=== PATIENT | male | born 1945 | race Caucasian/White ===

== ENCOUNTER → 2024-01-13 16:19 | Outpatient (REF) | payer MEDICARE, OTHER, SELFPAY | LOC: RAD 16:19 | PROVIDERS: ATTENDING PHYSICIAN Otolaryngology Otolaryngology/Facial Plastic Surgery; FAMILY PHYSICIAN Family Medicine | DX: J32.0 Chronic maxillary sinusitis (principal) | CPT/HCPCS: 70486 ==

== ENCOUNTER 2024-08-27 05:54 | Emergency (ER) | payer MEDICARE, OTHER, SELFPAY ==
[2024-08-27 05:54] VITALS: BMI 23.6
[2024-08-27 05:56] VITALS: BP 173/77
[2024-08-27 06:17] VITALS: BP 177/67
--- NOTE | 2024-08-27 06:40 | ED.GENMED ---
History of Present Illness
<Dex Chester MD, Resident - Last Filed: 08/27/24 10:01>
General
Chief Complaint: Abdominal Pain
Source: patient
Time Seen by Provider: 08/27/24 06:20
Travel History
Have you traveled to any high risk areas for coronavirus over the past 14 days?: No
Have you had any contact with someone who has COVID-19?: No
Do you have any symptoms of coronavirus? Fever > 100 degrees, chills, cough, shortness of breath, sore throat, loss of taste or smell, muscle aches, or headache?: No
History of Present Illness
History of Present Illness:
Marc Hernandez, 79-year-old male, has had abdominal pain, bloating and nausea with 1 episode of vomiting since last night. Symptoms began a few hours after dinner, and the pain improved after he threw up. The vomit mostly contained mucus, which the
patient attributes to his post-nasal drip. The nausea also improved but has persisted. He describes the pain as more of a discomfort now. Also feels relatively constipated; has moved his bowels twice in small amounts since the symptoms began. Denies
noticing blood or mucus in stool. Denies fever, chills, night sweats, fatigue, weakness or chest pain/tightness. Of note, he had re-heated pasta with chicken from earlier this week; shared with his who is asymptomatic.
Past History
<Dex Chester MD, Resident - Last Filed: 08/27/24 10:01>
Past History
ED Past Medical History: Cancer (prostate) and COPD
ED Past Surgical History: Other (proctectomy; sinus surgery * 2; left knee surgery)
Social History
Tobacco: Former smoker
Alcohol: None
Personal:
Living: with family
Review of Systems
<Dex Chester MD, Resident - Last Filed: 08/27/24 10:01>
Review of Systems
All Other Systems: ROS reviewed and negative except as documented in HPI and ROS
Phy Exam
<Dex Chester MD, Resident - Last Filed: 08/27/24 10:01>
General Physical Exam
General Presentation: well appearing and no apparent distress
General Skin: warm and dry
General Habitus: normal
General Mental: alert
General Hydration: appears well hydrated
ENT Exam
ENT Exam: EOMI, pharynx normal, neck supple and normocephalic
Eye Exam
Eye Exam: PERRL, cornea clear and conjunctiva normal
Cardiovascular Exam
Cardiovascular Exam: regular rate/rhythm, no edema, no murmur and normal peripheral pulses
Pulmonary Exam
Pulmonary Exam: lungs clear, no respiratory distress, no rales, no crackles, no rhonchi, no stridor, no wheezing and no cough
Gastrointestinal Exam
Gastrointestinal Exam: normal bowel sounds, soft, no organomegaly, no pulsatile mass, non distended and tender (periumbilical; mildly)
Neurological Exam
Neurological Exam: alert, oriented x3, no motor deficits and speech normal
Musculoskeletal Exam
Musculoskeletal Exam: full ROM and no edema
Skin Exam
Skin Exam: normal color, warm/dry, no rash and no petechia
Psychiatric Exam
Psychiatric Exam: normal mood/affect
Course
<Dex Chester MD, Resident - Last Filed: 08/27/24 10:01>
Orders/Labs/Results
Orders:
Orders
08/27/24 06:39
Ondansetron Injectable [Zofran] 4 mg IV NOW STA
08/27/24 06:41
Complete Blood Count/With Diff Urgent
Comprehensive Metabolic Panel Urgent
Lipase Urgent
08/27/24 06:42
Acetaminophen [Tylenol] 650 mg PO NOW STA
08/27/24 08:32
Urinalysis Reflex To Culture Urgent
Date Specimen was Collected: 08/27/24
Time Specimen was Collected: 08:30
Urine Microscopic Reflex Cult Urgent
Abnormal Lab Results
08/27/24 08/27/24
06:41 08:32
Absolute Lymphs (auto) 0.9 L 10^3/uL
(1.2-3.4)
Neutrophils % 79.5 H %
(42.2-75.2)
Lymphocytes % 11.7 L %
(20.5-51.1)
BUN 21 H mg/dl
(9-20)
Glucose 127 H mg/dl
(70-99)
Total Protein 8.6 H g/dl
(6.3-8.2)
Albumin 5.1 H g/dl
(3.5-5.0)
Ur Occult Blood Reflex 1+ A
(Negative)
Leukocyte Esterase Rfl Trace A
(Negative)
Urine RBC 3-6 A /HPF
(0-2)
Urine Bacteria (Reflex) Few A
(Negative)
Urine Albumin (Reflex) 1+ A
(Neg - Trace)
08/27/24 06:41
08/27/24 06:41
Vital Signs
Initial and Last Documented VS:
Initial Vital Signs
Temp Pulse Resp BP Pulse Ox
98 F 78 18 173/77 99
08/27/24 05:56 08/27/24 05:56 08/27/24 05:56 08/27/24 05:56 08/27/24 05:56
Last Documented Vital Signs
Temp Pulse Resp BP Pulse Ox
98 F 78 18 165/74 98
08/27/24 05:56 08/27/24 05:56 08/27/24 05:56 08/27/24 10:00 08/27/24 10:30
<Aquiles Smith DO - Last Filed: 08/27/24 13:12>
Orders/Labs/Results
Orders:
Orders
08/27/24 06:39
Ondansetron Injectable [Zofran] 4 mg IV NOW STA
08/27/24 06:41
Complete Blood Count/With Diff Urgent
Comprehensive Metabolic Panel Urgent
Lipase Urgent
08/27/24 06:42
Acetaminophen [Tylenol] 650 mg PO NOW STA
08/27/24 08:32
Urinalysis Reflex To Culture Urgent
Date Specimen was Collected: 08/27/24
Time Specimen was Collected: 08:30
Urine Microscopic Reflex Cult Urgent
Abnormal Lab Results
08/27/24 08/27/24
06:41 08:32
Absolute Lymphs (auto) 0.9 L 10^3/uL
(1.2-3.4)
Neutrophils % 79.5 H %
(42.2-75.2)
Lymphocytes % 11.7 L %
(20.5-51.1)
BUN 21 H mg/dl
(9-20)
Glucose 127 H mg/dl
(70-99)
Total Protein 8.6 H g/dl
(6.3-8.2)
Albumin 5.1 H g/dl
(3.5-5.0)
Ur Occult Blood Reflex 1+ A
(Negative)
Leukocyte Esterase Rfl Trace A
(Negative)
Urine RBC 3-6 A /HPF
(0-2)
Urine Bacteria (Reflex) Few A
(Negative)
Urine Albumin (Reflex) 1+ A
(Neg - Trace)
08/27/24 06:41
08/27/24 06:41
Vital Signs
Initial and Last Documented VS:
Initial Vital Signs
Temp Pulse Resp BP Pulse Ox
98 F 78 18 173/77 99
08/27/24 05:56 08/27/24 05:56 08/27/24 05:56 08/27/24 05:56 08/27/24 05:56
Last Documented Vital Signs
Temp Pulse Resp BP Pulse Ox
98 F 78 18 165/74 98
08/27/24 05:56 08/27/24 05:56 08/27/24 05:56 08/27/24 10:00 08/27/24 10:30
<Dex Chester MD, Resident - Last Filed: 08/27/24 10:01>
MDM/Problems Addressed
Differential Diagnosis Includes:
viral gastroenteritis; food poisoning; constipation
MDM/Problems Addressed:
Patient is stable, and has not been nauseous. Abdominal discomfort is a little better but exam is unremarkable and non-tender now. Able to tolerate oral intake without nausea or difficulty. Vitals and lab work within normal limits. Okay to discharge
home with nausea medications. Discussed with the patient and recommended following up with primary.
<Dex Chester MD, Resident - Last Filed: 08/27/24 10:01>
*Critical Care Note
Total Time (30-74mins, 75-104mins- exclusive of procedures): Not Applicable
ED Attending Note
<Dex Chester MD, Resident - Last Filed: 08/27/24 10:01>
-
Portions of this chart may have been created with voice recognition software.� Occasional wrong word or��sound alike� substitutions may have occurred due to the inherent limitations of voice recognition software.
<Aquiles Smith, - Last Filed: 08/27/24 13:12>
ED Attending Note
Patient seen and examined by attending physician: Yes
I performed the substantive portion of visit, reviewed & personally made and approve the management plan that is documented in note by myself or JONA.: Yes
ED Attending Note:
I agree with Dr. Thurman's note
Patient presents with nausea, some vague lower abdominal discomfort. Symptoms have improved significantly after vomiting prior to the emergency room visit. No diarrhea or constipation.
General: Awake, Alert, Oriented X3. No acute distress.
Vitals: unremarkable
Head: Atraumatic
Eyes: Pupils equal, EOMI
Neck: Trachea midline
Lungs: Clear and equal b/l
Heart: Regular rate, no murmurs
Abd: Soft, Nontender, No pulsatile mass
Neuro: Nonfocal
Skin: Warm, dry, no rash
Extremities: pulses equal b/l, no edema
Patient feels better after Zofran here. His abdominal exam is benign. Labs are unremarkable. No sign of urinary tract infection. Patient stable for discharge home and outpatient follow-up
Discharge Plan
Departure
Patient Disposition: Home (Routine Discharge)
Date of Disposition: 08/27/24
Time of Disposition: 09:55
Patient with high blood pressure during this ER visit?: Yes
Condition: Good
Discharge Problem:
Viral gastroenteritis
Instructions: Edmonson Diet, Abdominal Pain
Prescriptions:
New
ondansetron HCl 4 mg tablet
4 mg PO Q8H PRN (Reason: nausea and vomiting) Qty: 14 0RF
No Action
simvastatin 10 MG tablet
10 mg PO DAILY
aspirin 81 MG tablet,delayed release (DR/EC)
81 mg PO DAILY
mometasone [Nasonex] 17 GM spray,non-aerosol
1 spray intranasal .NOSTRIL
montelukast 10 MG tablet
10 mg PO QPM
mometasone [Asmanex Twisthaler] 220 MCG aerosol powdr breath activated
220 mcg IH DAILY
omeprazole 40 MG capsule,delayed release(DR/EC)
40 mg PO PRN PRN (Reason: prn)
sildenafil [Viagra] 25 MG tablet
50 mg PO PRN PRN (Reason: prn)
Referrals:
Ad Dorman MD [Family Provider] -
Activity Restrictions/Additional Instructions:
Rest and maintain adequate hydration. Follow-up with your primary. Please return to the emergency for worsening symptoms, fever, fatigue or weakness.
Interventions
Interventions:
*Risk Screen - Suicide Last Done: 08/27/24 05:59
*General Assessment Last Done: 08/27/24 05:59
*Neglect/Abuse Screening Last Done: 08/27/24 06:33
ED- Fall Risk Assessment Last Done: 08/27/24 10:45
*ED COVID-19 Vaccine History Last Done: 08/27/24 05:59
*Nursing Disposition Last Done: 08/27/24 10:45
JW-Ykdvej-Dzinoyvegq Assessment Last Done: 08/27/24 06:32
Discharge Date and Time
Discharge Date/Time: 08/27/24 10:45
Print Language: PALAUAN
[2024-08-27] MEDS: TYLENOL 650 MG PO (06:46)
[2024-08-27] MEDS: ZOFRAN 4 MG IV (06:46)
[2024-08-27 06:49] LABS: % Basophils 0.4 % (0-2); % Eosinophils 1.6 % (0-6); % Immature Granulocytes 0.5 % (0-0.5); % Lymphocytes 11.7 % (20.5-51.1); % Monocytes 6.3 % (1.7-9.3); % Neutrophils 79.5 % (42.2-75.2); Absolute Eosinophils 0.1 10^3/uL (0-0.7); Absolute Lymphocytes 0.9 10^3/uL (1.2-3.4); Absolute Monocytes 0.5 10^3/uL (0.1-0.6); Absolute Neutrophils 5.8 10^3/uL (1.4-6.5); Hematocrit 44.9 % (39.0-52.0); Hemoglobin 15.1 g/dL (13.0-18.0); Mean Corp Hgb Conc. 33.6 g/dL (33.0-37.0); Mean Corpuscular Hgb 28.5 pg (27.0-31.0); Mean Corpuscular Volume 84.9 fL (80.0-94.0); Mean Platelet Volume 9.9 fL (7.4-10.4); Nucleated Red Blood Cells % 0 % (-); Platelet Count 211 10^3/uL (130-400); Red Blood Cell Count 5.29 10^6/uL (4.70-6.10); Red Cell Dist. Width 13.2 % (11.5-14.5); White Blood Cell Count 7.3 10^3/uL (4.8-10.8)
[2024-08-27 07:00] VITALS: BP 150/68
[2024-08-27 07:01] LABS: ALT (SGPT) 36 U/L (0-50); AST (SGOT) 41 U/L (17-59); Albumin 5.1 g/dl (3.5-5.0); Alkaline Phosphatase 106 U/L (38-126); Blood Urea Nitrogen 21 mg/dl (9-20); Carbon Dioxide 27 mmol/L (22-30); Chloride 100 mmol/L (98-107); Estimated Creatinine Clearance 55 ml/min; Glucose 127 mg/dl (70-99); Lipase 59 U/L (23-300); Potassium 4.1 mmol/L (3.5-5.1); Sodium 142 mmol/L (135-145); Total Bilirubin 0.6 mg/dl (0.2-1.3); Total Protein 8.6 g/dl (6.3-8.2); eGFR > 60.00
[2024-08-27 08:31] VITALS: BP 114/92
[2024-08-27 08:42] LABS: Urine Albumin 1+ (Neg - Trace); Urine Bilirubin Negative (Negative); Urine Character Clear (Clear); Urine Color Yellow; Urine Glucose Negative (Negative); Urine Ketone Negative (Negative); Urine Leukocyte Trace (Negative); Urine Nitrite Negative (Negative); Urine Occult Blood 1+ (Negative); Urine Urobilinogen Negative (Neg - 1+)
[2024-08-27 09:00] VITALS: BP 140/67
[2024-08-27 09:10] LABS: Urine Mucus Many
[2024-08-27 09:14] LABS: Urine Amorphous Seen; Urine Bacteria Few (Negative); Urine White Cell 0-2 /HPF (0-5)
[2024-08-27 10:00] VITALS: BP 165/74
== END 2024-08-27 10:45 | disposition home or self-care (01) ==
LOC: EMR 05:54
PROVIDERS: Student in an Organized Health Care Education/Training Program; EMERGENCY PHYSICIAN Emergency Medicine; FAMILY PHYSICIAN Family Medicine
DX: A08.4 Viral intestinal infection, unspecified (principal); R10.9 Unspecified abdominal pain; R14.0 Abdominal distension (gaseous); J44.9 Chronic obstructive pulmonary disease, unspecified; Z87.891 Personal history of nicotine dependence
CPT/HCPCS: 99283; 96374; 80053; 81003; 81015; 83690; 85025

== ENCOUNTER → 2025-05-03 10:56 | Outpatient (REF) | payer MEDICARE, OTHER, SELFPAY | LOC: RCS 10:56 | PROVIDERS: ATTENDING PHYSICIAN Internal Medicine Cardiovascular Disease; FAMILY PHYSICIAN Family Medicine | DX: I35.0 Nonrheumatic aortic (valve) stenosis (principal) | CPT/HCPCS: 93306 ==

== ENCOUNTER 2025-10-11 14:34 | Inpatient (IN) | payer MEDICARE, OTHER, SELFPAY ==
[2025-10-11] VITALS (9 sets, daily range): BP systolic 124–171; BP diastolic 61–80; BMI 24.3; BMI 24.5
--- NOTE | 2025-10-11 09:44 | ED.GENMED ---
History of Present Illness
<Penny Roberts DOT COMPLIANCE MANAGER - Last Filed: 10/12/25 08:33>
General
Chief Complaint: Abdominal Pain
Source: patient
Exam Limitations: none
Time Seen by Provider: 10/11/25 09:43
Nursing documentation reviewed up to this point in time: agreed with
History of Present Illness
History of Present Illness:
80-year-old male with history of COPD, HLD, prostate cancer with prostatectomy 2008, presents from home stating he's had abdominal cramping and vomiting, beginning yesterday. Described as crampy abdominal discomfort and had two to three formed bowel
movements, feeling somewhat improved afterward. The patient reported increased belching as the day progressed and while walking the dog a while later, he 'vomited out of nowhere, a small amount. Throughout the night, he experienced significant
abdominal pain, rating it 8 out of 10 on a severity scale. Upon waking at 8 AM today, the patient vomited a large volume of undigested food from last nights dinner and felt somewhat better and not as bloated. Currently, the pain is rated as 2/10
from 8/10 earlier. The patient reports persistent nausea but no fever, chills, diarrhea, or difficulty urinating.
Has been having intermittent stomach issues, PCP aware, and reports a normal abdominal US at [facility] about 2 months ago.
Past History
<Penny Roberts, DOT COMPLIANCE MANAGER - Last Filed: 10/12/25 08:33>
Past History
ED Past Medical History: Cancer (prostate) and COPD
ED Past Surgical History: Other (proctectomy; sinus surgery * 2; left knee surgery)
Social History
Tobacco: Former smoker
Alcohol: None
Personal:
Living: with family
Employment: Retired
Review of Systems
<Penny Roberts, DOT COMPLIANCE MANAGER - Last Filed: 10/12/25 08:33>
Review of Systems
Allergies reviewed?: Yes
All Other Systems: ROS reviewed and negative except as documented in HPI and ROS
Constitutional: Denies fever or chills
Respiratory: Denies trouble breathing
Cardiac: Denies chest pain
ABD/GI: Reports abdominal pain, nausea and vomiting; Denies diarrhea, constipated, bloody stools, black stools or anorexia
: Denies dysuria or difficulty voiding
Musculoskeletal: Reports no symptoms
Skin: Reports no symptoms
Neurological: Reports no symptoms
Phy Exam
<Penny Roberts, DOT COMPLIANCE MANAGER - Last Filed: 10/12/25 08:33>
Physical Exam
Physical Exam:
GENERAL: No acute distress. A&Ox3.
CONSTITUTIONAL: Afebrile.
EYES: clear, conjunctivae normal
ENMT: dry mucus membranes, Pharynx nl
RESPIRATORY: Regular respirations, nonlabored, lungs clear.
CARDIOVASCULAR: Regular rate and rhythm, no murmurs, no rubs.
GI: Soft, mildly distended, hypoactive BS
MUSCULOSKELETAL: Moves with ease. Well perfused. No edema
SKIN: Warm, dry, pink
PSYCH: Normal mood and affect. Well kept, interactive and appropriate
NEUROLOGIC: Awake, alert and oriented. No focal neurological deficits
Course
<Penny Roberts, DOT COMPLIANCE MANAGER - Last Filed: 10/12/25 08:33>
Orders/Labs/Results
Orders:
Orders
10/11/25 Breakfast
NPO
Allow oral meds: No
Allow clear liquids: No
10/11/25 09:56
Iohexol [Omnipaque] See Protocol PO NOW STA
10/11/25 10:00
CT Abd/pel W Iv And Oral Contr Urgent
Comment:
Reason For Exam: general abd pain, bloating
10/11/25 10:02
0.9% Sodium Chloride 1000 ml [Nss] 1,000 ml IV BOLUS
Ondansetron Injectable [Zofran] 4 mg IV NOW STA
10/11/25 10:03
Complete Blood Count/With Diff Urgent
Comprehensive Metabolic Panel Urgent
Lipase Urgent
10/11/25 13:40
NG Tube [GI tube insertion- Treatment] ONCE
10/11/25 14:05
Admit/Transfer Patient As Directed
Co-Sign Provider:
Level of Care: Inpatient admission
Assign to:: Medical/Surgical
Physician / Group: chuck
Diagnosis: SBO
Reason for Hospitalization: SBO
Expected length of stay greater than two midnights?: Yes
ELOS- Estimated Length of Stay in days: 3
I certify the patient meets the requirements for IP care: Yes
PRN Pain Medication Management As Directed
May give lesser potent ordered pain med per pt: Yes
preference::
Protocol:: Medication orders for pain may be administered in a
manner that supports deferring to patient preference
when the pt is:
- Requesting an ordered lesser potent pain medication.
Least to most potent pain medications are defined
as: acetaminophen < NSAID < tramadol < opioids
(morphine, oxycodone, hydromorphone).
- Requesting a lesser dose of the same medication IF
ORDERED.
- Requesting a less intrusive route of administration
if both routes are prescribed by the provider (PO <
IV).
10/11/25 14:06
Code Status As Directed
Resuscitation Status: Full Code
10/11/25 14:08
EKG [Electrocardiogram (*1)] Stat
Reason for Study: QTc Monitoring
10/11/25 17:07
Ondansetron Injectable [Zofran] 4 mg IV Q6HPRN PRN
10/11/25 17:07
SURGICAL CONSULT Routine
Consulting Provider: Po Stevens
Was physician already notified: Yes
Activity As Directed
Activity Level: As Tolerated
NG Tube [Gastrointestinal Tubes] As Directed
To suction?: Yes
Type of suction: Low intermittent
Irrigate tube?: Yes
Irrigant: Normal Saline - 0.9% NaCl
Frequency: Q4H
Amount in mls: 30
Irrigation Directions: Irrigate Q4H and PRN
Vital Signs As Directed
Frequency: Per unit guidelines
DX Deep Vein Thrombosis Video Routine
10/11/25 18:00
Enoxaparin Sodium [Lovenox] 40 mg SC QPM
10/12/25 05:36
Basic Metabolic Panel IN AM
Complete Blood Count/No Diff IN AM
10/13/25 06:00
Basic Metabolic Panel IN AM
10/14/25 06:00
Basic Metabolic Panel IN AM
Abnormal Lab Results
10/11/25
10:03
Absolute Neuts (auto) 7.1 H 10^3/uL
(1.4-6.5)
Absolute Lymphs (auto) 0.6 L 10^3/uL
(1.2-3.4)
Neutrophils % 85.3 H %
(42.2-75.2)
Lymphocytes % 7.7 L %
(20.5-51.1)
Glucose 128 H mg/dl
(70-99)
10/11/25 10:03
10/11/25 10:03
Vital Signs
Initial and Last Documented VS:
Initial Vital Signs
Temp Pulse Resp BP Pulse Ox
98.6 F 82 18 146/69 98
10/11/25 09:39 10/11/25 09:39 10/11/25 09:39 10/11/25 09:39 10/11/25 09:39
Last Documented Vital Signs
Temp Pulse Resp BP Pulse Ox
97.9 F 67 16 137/59 96
10/12/25 08:01 10/12/25 08:01 10/12/25 08:01 10/12/25 08:01 10/12/25 08:01
<Tressa Hinojosa DO - Last Filed: 10/11/25 16:22>
Orders/Labs/Results
Orders:
Orders
10/11/25 Breakfast
NPO
Allow oral meds: No
Allow clear liquids: No
10/11/25 09:56
Iohexol [Omnipaque] See Protocol PO NOW STA
10/11/25 10:00
CT Abd/pel W Iv And Oral Contr Urgent
Comment:
Reason For Exam: general abd pain, bloating
10/11/25 10:02
0.9% Sodium Chloride 1000 ml [Nss] 1,000 ml IV BOLUS
Ondansetron Injectable [Zofran] 4 mg IV NOW STA
10/11/25 10:03
Complete Blood Count/With Diff Urgent
Comprehensive Metabolic Panel Urgent
Lipase Urgent
10/11/25 13:40
NG Tube [GI tube insertion- Treatment] ONCE
10/11/25 14:05
Admit/Transfer Patient As Directed
Co-Sign Provider:
Level of Care: Inpatient admission
Assign to:: Medical/Surgical
Physician / Group: chuck
Diagnosis: SBO
Reason for Hospitalization: SBO
Expected length of stay greater than two midnights?: Yes
ELOS- Estimated Length of Stay in days: 3
I certify the patient meets the requirements for IP care: Yes
PRN Pain Medication Management As Directed
May give lesser potent ordered pain med per pt: Yes
preference::
Protocol:: Medication orders for pain may be administered in a
manner that supports deferring to patient preference
when the pt is:
- Requesting an ordered lesser potent pain medication.
Least to most potent pain medications are defined
as: acetaminophen < NSAID < tramadol < opioids
(morphine, oxycodone, hydromorphone).
- Requesting a lesser dose of the same medication IF
ORDERED.
- Requesting a less intrusive route of administration
if both routes are prescribed by the provider (PO <
IV).
10/11/25 14:06
Code Status As Directed
Resuscitation Status: Full Code
10/11/25 14:08
EKG [Electrocardiogram (*1)] Stat
Reason for Study: QTc Monitoring
10/11/25 17:07
Ondansetron Injectable [Zofran] 4 mg IV Q6HPRN PRN
10/11/25 17:07
SURGICAL CONSULT Routine
Consulting Provider: Po Stevens
Was physician already notified: Yes
Activity As Directed
Activity Level: As Tolerated
NG Tube [Gastrointestinal Tubes] As Directed
To suction?: Yes
Type of suction: Low intermittent
Irrigate tube?: Yes
Irrigant: Normal Saline - 0.9% NaCl
Frequency: Q4H
Amount in mls: 30
Irrigation Directions: Irrigate Q4H and PRN
Vital Signs As Directed
Frequency: Per unit guidelines
DX Deep Vein Thrombosis Video Routine
10/11/25 18:00
Enoxaparin Sodium [Lovenox] 40 mg SC QPM
10/12/25 05:36
Basic Metabolic Panel IN AM
Complete Blood Count/No Diff IN AM
10/13/25 06:00
Basic Metabolic Panel IN AM
10/14/25 06:00
Basic Metabolic Panel IN AM
Abnormal Lab Results
10/11/25
10:03
Absolute Neuts (auto) 7.1 H 10^3/uL
(1.4-6.5)
Absolute Lymphs (auto) 0.6 L 10^3/uL
(1.2-3.4)
Neutrophils % 85.3 H %
(42.2-75.2)
Lymphocytes % 7.7 L %
(20.5-51.1)
Glucose 128 H mg/dl
(70-99)
10/11/25 10:03
10/11/25 10:03
Vital Signs
Initial and Last Documented VS:
Initial Vital Signs
Temp Pulse Resp BP Pulse Ox
98.6 F 82 18 146/69 98
10/11/25 09:39 10/11/25 09:39 10/11/25 09:39 10/11/25 09:39 10/11/25 09:39
Last Documented Vital Signs
Temp Pulse Resp BP Pulse Ox
97.9 F 67 16 137/59 96
10/12/25 08:01 10/12/25 08:01 10/12/25 08:01 10/12/25 08:01 10/12/25 08:01
<Penny Roberts, DOT COMPLIANCE MANAGER - Last Filed: 10/12/25 08:33>
MDM/Problems Addressed
MDM/Problems Addressed:
80-year-old male with history of COPD, HLD, prostate cancer with prostatectomy 2008, presents from home stating he's had abdominal cramping and vomiting, beginning yesterday. Described as crampy abdominal discomfort and had two to three formed bowel
movements, feeling somewhat improved afterward. The patient reported increased belching as the day progressed and while walking the dog a while later, he 'vomited out of nowhere, a small amount. Throughout the night, he experienced significant
abdominal pain, rating it 8 out of 10 on a severity scale. Upon waking at 8 AM today, the patient vomited a large volume of undigested food from last nights dinner and felt somewhat better and not as bloated. Currently, the pain is rated as 2/10
from 8/10 earlier. The patient reports persistent nausea but no fever, chills, diarrhea, or difficulty urinating.
Has been having intermittent stomach issues, PCP aware, and reports a normal abdominal US at [facility] about 2 months ago.
10:45 AM:
CBC normal
CMP normal
lipase normal
1:30 PM:
CAT scan abdomen pelvis p.o. and IV contrast with read: IMPRESSION:
1. Small bowel obstruction with transition point in the right lower quadrant as above. Just proximal to the transition, there is fat attenuation within the small bowel lumen which is probably related to ingested material rather than mass as above.
Associated small volume of free fluid within the pelvis, no abscess formation or pneumoperitoneum.
2. Hepatomegaly and hepatic fatty infiltration.
Hospitalist and Gen Surgery Dr. Stevens notified of admisison.
NG tube ordered
Pt remains stable.
<Penny Roberts, DOT COMPLIANCE MANAGER - Last Filed: 10/12/25 08:33>
*Pulse Oximetry
SaO2: 98
Oxygen Mode of Delivery: Room air
Patient hypoxic: no
*Critical Care Note
Total Time (30-74mins, 75-104mins- exclusive of procedures): Not Applicable
ED Attending Note
<Penny Roberts, DOT COMPLIANCE MANAGER - Last Filed: 10/12/25 08:33>
-
Portions of this chart may have been created with voice recognition software.� Occasional wrong word or��sound alike� substitutions may have occurred due to the inherent limitations of voice recognition software.
<Tressa Hinojosa DO - Last Filed: 10/11/25 16:22>
ED Attending Note
Patient seen and examined by attending physician: Yes
I performed the substantive portion of visit, reviewed & personally made and approve the management plan that is documented in note by myself or JONA.: Yes
I performed a history and physical exam of patient and discussed management with resident, I reviewed resident's note and agree with documented findings and plan of care.: Yes
ED Attending Note:
. 80-year-old male presents to the ER for evaluation of abdominal discomfort, nausea and vomiting. He denies any prior history of similar pains. Vital signs reviewed, patient is awake, alert, appears in no acute distress, mucous membranes tacky,
NG tube present in nostril draining coffee-ground appearing material, abdomen is soft with mild distention, GCS is 15. I discussed with patient need for admission given presence of bowel obstruction. He agrees with plan at current. Nurse
practitioner was able to speak with hospitalist team and surgery team who accept patient for admission
Discharge Plan
Departure
Patient Disposition: Admit
Date of Disposition: 10/11/25
Time of Disposition: 13:42
Admit to: Med/Surg
Presentation/result/management discussed w/ accepting MD/DO: Hospitalist
Condition: Fair
Discharge Problem:
SBO (small bowel obstruction)
Interventions
Interventions:
*Risk Screen - Suicide Last Done: 10/11/25 09:39
*Neglect/Abuse Screening Last Done: 10/11/25 09:39
*ED COVID-19 Vaccine History Last Done: 10/11/25 09:39
*ED Influenza Vaccine History Last Done: 10/11/25 09:39
[facility] Fall Risk Assessment Tool Last Done: 10/11/25 09:37
*Nursing Disposition Last Done: 10/11/25 16:45
RT-Pcbpjk-Ihesohqdzl Assessment Last Done: 10/11/25 09:51
Discharge Date and Time
Discharge Date/Time: 10/11/25 16:46
[2025-10-11] MEDS: OMNIPAQUE 50 ML PO (10:08)
[2025-10-11] MEDS: ZOFRAN 4 MG IV (10:08)
[2025-10-11] MEDS: NSS 1000 IV (10:10)
[2025-10-11 10:22] LABS: Hematocrit 45.6 % (39.0-52.0); Hemoglobin 15.2 g/dL (13.0-18.0); Mean Corp Hgb Conc. 33.3 g/dL (33.0-37.0); Mean Corpuscular Volume 88.7 fL (80.0-94.0); Nucleated Red Blood Cells % 0 % (-); Platelet Count 218 10^3/uL (130-400); Red Cell Dist. Width 13.2 % (11.5-14.5)
[2025-10-11 10:33] LABS: ALT (SGPT) 25 U/L (0-50); AST (SGOT) 27 U/L (17-59); Albumin 4.7 g/dl (3.5-5.0); Alkaline Phosphatase 107 U/L (38-126); Blood Urea Nitrogen 16 mg/dl (9-20); Calcium 9.5 mg/dl (8.4-10.2); Carbon Dioxide 25 mmol/L (22-30); Chloride 103 mmol/L (98-107); Estimated Creatinine Clearance 64 ml/min; Glucose 128 mg/dl (70-99); Lipase 97 U/L (23-300); Potassium 4.4 mmol/L (3.5-5.1); Sodium 137 mmol/L (135-145); Total Protein 8.0 g/dl (6.3-8.2); eGFR > 60.00
--- NOTE | 2025-10-11 13:48 | HPS.HSE ---
Addendum entered and electronically signed by Lee Ann Garza MD 10/11/25 15:48:
This is an addendum to H&P written by Janett Tejeda on 10/11/2025. �Patient seen and examined independently with SCREW CUTTER.
80-year-old male past medical history of asthma, hypercholesteremia, prostate cancer status post prostatectomy 2008, COPD, presenting with ongoing abdominal cramping/bloating. �Had outpatient ultrasound unremarkable 2 months ago. �Yesterday
abdominal distention and pain, dry heaving, 4 large bowel movements. �Large vomiting this morning.
Vital signs unremarkable.
Labs unremarkable.
CT abdomen pelvis shows small bowel obstruction with transition point in the right lower quadrant.
Patient with acute small bowel obstruction. �N.p.o., IV fluids, Zofran, NG tube placed, general surgery consulted.
Original Note:
Family Physician
-
Family Physician: Ad Dorman
Chief Complaint
-
abdominal pain and distention.
History of Present Illness
80-year-old male with history of COPD, HLD, prostate cancer with prostatectomy 2008, presents from home stating he's had abdominal cramping and vomiting, beginning yesterday. patient stated abdominal bloating, cramping for a while. he obtained US of
abdomen with no acute finding. yesterday patient started having abdominal distention, pain. he was having dry heaving and vomited large volume of undigested food today morning. yesterday, he moved large regular bowel movement 3-4 times. denied
dysuria or hematuria. denied fever, chills, DELA CRUZ, dizzy or syncope. denied chest pain, sob.
CT with large SBO. admitting for further management.
Medical History
Past Medical History
Past Medical History: Reports Other
Additional Past Medical History:
Asthma, hypercholesterolemia, Raynaud's disease
Past Surgical History: Reports Other
Additional Past Surgical History:
Prostatectomy, sinus surgery
Social History
Tobacco: Non-smoker
Alcohol: Occasional
Drug: None
Living: With Family
Family History
Family History: Not pertinent
Allergies / Home Medications
Allergies reflects when Allergies were last updated in [facility].
Home Medications with original date entered in [facility]
Allergy/Medication List:
Allergies
Allergy/AdvReac Type Severity Reaction Status Date / Time
latex Allergy Unknown Verified 10/11/25 09:38
dust Allergy Unknown Uncoded 10/11/25 09:38
pollen Allergy Unknown Uncoded 10/11/25 09:38
Home Medications
aspirin 81 mg tablet,delayed release 81 mg PO DAILY 04/29/16
mometasone 220 mcg/actuation(120 doses)breath activated powder inhaler (Asmanex Twisthaler) 220 mcg IH DAILY 04/29/16
mometasone 50 mcg/actuation nasal spray (Nasonex) 1 spray intranasal .NOSTRIL 04/29/16
montelukast 10 mg tablet 10 mg PO QPM 04/29/16
simvastatin 10 mg tablet 10 mg PO DAILY 04/29/16
omeprazole 40 mg capsule,delayed release 40 mg PO PRN PRN prn 04/30/19
sildenafil 25 mg tablet (Viagra) 50 mg PO PRN PRN prn 04/30/19
ondansetron HCl 4 mg tablet 4 mg PO Q8H PRN nausea and vomiting #14 tabs 08/27/24
Review of Systems
-
Abdomen/GI: Reports No Symptoms, Abdominal Pain, Nausea and Vomiting
Physical Exam
Vital Signs
Vital Signs
Temp Pulse Resp BP Pulse Ox
98.2 F 75 25 171/80 99
10/11/25 12:00 10/11/25 13:00 10/11/25 13:00 10/11/25 13:00 10/11/25 13:00
Physical Exam
General: Well Developed, Well Nourished and No Apparent Distress
HEENT: NormoCephalic, Moist mucous membranes and Atraumatic
Respiratory: Clear
Cardiac: S1/S2 and Regular Rhythm; No Murmur or Rub
GI: Soft, Non Tender, Non Distended, Normal Bowel Sounds and Distended; No Organomegaly
Rectal: Deferred by Provider
Musculoskeletal: No Clubbing, No Cyanosis and No Edema
Skin: No Rash
Neuro: AO x 3 and Nonfocal/grossly intact
Psych: Calm
Laboratory Results
-
10/11/25 10:03
10/11/25 10:03
Laboratory Results
Total Bilirubin 0.6 mg/dl (0.2-1.3) 10/11/25 10:03
AST 27 U/L (17-59) 10/11/25 10:03
ALT 25 U/L (0-50) 10/11/25 10:03
Alkaline Phosphatase 107 U/L (38-126) 10/11/25 10:03
Lipase 97 U/L (23-300) 10/11/25 10:03
Data Reviewed
-
CT Scan: Report Reviewed by me
Lab Data: Labs Reviewed by me
Impression/Plan
-
# Small bowel obstruction
- NG tube
- Keep patient n.p.o.
-Zofran prn for n/v
- Surgery consult
- CT abdomen pelvis with impression Small bowel obstruction with transition point in the right lower quadrant as above. Just proximal to the transition, there is fat attenuation within the small bowel lumen which is probably related to ingested
material rather than mass as above. Associated small volume of free fluid within the pelvis, no abscess formation or pneumoperitoneum.
2. Hepatomegaly and hepatic fatty infiltration.
#hxt of asthma
-not in acute exacerbation
-hold med
#HLD
-hold statin
#DVT prophylaxis
-Lovenox
#CODE status
-full code
--- NOTE | 2025-10-11 14:05 | CON.GS ---
Addendum entered and electronically signed by Po Stevens MD 10/11/25 21:14:
Patient seen and examined.
Patient is a 80 yo M with a PMH of asthma, psoriasis, HLD, and prostate cancer s/p robotic prostatectomy 2004 at [facility] who presents with 24 hours of abdominal pain, nausea, and vomiting. Abdominal cramping and pain has been intermittent over the
past 8-10 months; occurring on a weekly basis with spontaneous resolution over the course of hours. No prior hospital admissions. Symptoms usually occur with having a BM and are improved with Gas-X. No use of laxatives or chronic bowel meds.
Current episode began yesterday morning an progressed throughout the day with worsening crampy pain and distension. Associated nausea and vomiting. No clear dietary indiscretion or large volume of fiber, he denies any issues immediately following
Thanksgiving. No fevers, chills, night sweats or weight loss. No hemoptysis or bloody/tarry BMs. Last BM was several yesterday, he cannot remember last flatus. Last colonoscopy was 3 years ago at [place]. Currently, symptoms improved after
NGT placement.
Gen: uncomfortable, NAD
HEENT: brown feculent output
Abd: soft, diffusely tender, distended, tympanitic, non-peritoneal, prior incisions well healed
Labs and CT scan imaging were reviewed.
Patient is a 80 yo M p/w SBO likely secondary to adhesions, less likely intraluminal mass
The natural history and pathophysiology of SBOs was reviewed. CT scan imaging was reviewed. No signs of symptoms concerning for bowel threat; peritonitic, tachycardia, pneumatosis or free air. Most likely adhesions give prior history, CT does
raise some question of a luminal mass though difficult to discern on current study. Recommend trial of medical management with bowel rest and decompression. Role of surgical intervention if symptoms do not improve was reviewed. Benefit in
outpatient follow-up with further imaging work-up with MRE and consideration of elective surgical exploration given the chronicity of his symptoms was reviewed. All questions answered.
-- No plans for surgery at this time
-- NPO, NGT decompression
-- Repeat X-ray abdomen tomorrow
-- Correct lytes, minimize narcotics, ambulate as able
Original Note:
Consultation
-
Date/Time Consultation Requested: 10/11/2025
Date/Time Consultation Performed: 10/11/2025
Requesting Provider: Penny Roberts
Performing Provider: Dr. Stevens
Reason for Consultation: Abdominal pain
Medical History
-
Chief Complaint: Abdominal pain
History of Present Illness:
Mr. Hernandez is a 80-year-old man with past medical history of asthma, psoriasis, hyperlipidemia, prostate cancer, robotic prostatectomy 2004 presenting with abdominal pain and vomiting. Abdominal cramping and pain has been going for a while, 8 to 10
months 1-3 times a week with alleviation of pain after defecation. He went to PCP and got abdominal US 2 months ago that was unremarkable showing large amount of gas. Patient has noticed that he has become a bit more constipated than usual, but
still endorses regular bowel movements about once a day. During the 8 to 10 months he would have episodes of abdominal pain and cramping that were quite painful but resolve on their own, sometimes would need to use Gas-X. Yesterday he had diffuse
abdominal pain that was crampy and has 3-4 bowel movements and pain improved. This morning he had large-volume emesis that was dark nonbloody nonblack with undigested food and increasing abdominal distention and pain that brought him to the ER.
Last colonoscopy was 3 years ago and was unremarkable, has had 1 polyp removed during previous colonoscopies. CT abdomen pelvis here in the ER notable for small bowel obstruction with fat attenuation proximal to transition point. He does not
endorse night sweats or weight loss and endorsed medication changes during this past year for psoriasis. He reports no sick contacts no fevers chills no burning with urination no frequency, no shortness of breath no chest pain.
Past Medical History
Past Medical History: Cancer (Prostate) and Other (Psoriasis)
Past Surgical History: Orthopedic (Left knee replacement), Urological (Prostatectomy) and Other (Sinus surgery)
Social History
Tobacco: Former Smoker (In 20s)
Alcohol: Occasional
Drug: None
Personal:
Living: With Family
Employment: Retired
Family History
Family History: Other (Father carcinoid syndrome)
Allergies / Home Medications
Allergy/AdvReac Type Severity Reaction Status Date / Time
latex Allergy Unknown Verified 10/11/25 09:38
dust Allergy Unknown Uncoded 10/11/25 09:38
pollen Allergy Unknown Uncoded 10/11/25 09:38
�Medication �Instructions �Recorded �Confirmed �Type
aspirin 81 mg tablet,delayed 81 mg PO DAILY 04/29/16 04/30/19 History
release
mometasone 220 mcg/actuation(120 220 mcg IH DAILY 04/29/16 04/30/19 History
doses)breath activated powder
inhaler (Asmanex Twisthaler)
mometasone 50 mcg/actuation nasal 1 spray intranasal .NOSTRIL 04/29/16 04/30/19 History
spray (Nasonex)
montelukast 10 mg tablet 10 mg PO QPM 04/29/16 04/30/19 History
simvastatin 10 mg tablet 10 mg PO DAILY 04/29/16 04/30/19 History
omeprazole 40 mg capsule,delayed 40 mg PO PRN PRN prn 04/30/19 04/30/19 History
release
sildenafil 25 mg tablet (Viagra) 50 mg PO PRN PRN prn 04/30/19 04/30/19 History
ondansetron HCl 4 mg tablet 4 mg PO Q8H PRN nausea and 08/27/24 Rx
vomiting #14 tabs
Review of Systems
-
History Source: Patient
All other systems: Negative unless noted
Abdomen/GI: Abdominal Pain, Nausea, Vomiting and Constipated
A 10 point review of systems was completed, and was negative except as per HPI.
Physical Exam
Vital Signs
Temp Pulse Resp BP Pulse Ox
98.2 F 75 25 171/80 99
10/11/25 12:00 10/11/25 13:00 10/11/25 13:00 10/11/25 13:00 10/11/25 13:00
10/10/25 10/11/25 10/12/25
06:59 06:59 06:59
Actual Weight 72.4 kg
Body Mass Index (BMI) 24.3
Lab Results
10/11/25 10:03
10/11/25 10:03
WBC 8.3 10^3/uL (4.8-10.8) 10/11/25 10:03
Hgb 15.2 g/dL (13.0-18.0) 10/11/25 10:03
Hct 45.6 % (39.0-52.0) 10/11/25 10:03
Plt Count 218 10^3/uL (130-400) 10/11/25 10:03
Abs Immat Gran (auto) 0.0 10^3/uL (0-0.05) 10/11/25 10:03
Neutrophils % 85.3 % (42.2-75.2) H 10/11/25 10:03
Physical Exam
General: Well Developed, Well Nourished, No Apparent Distress and Pain; Negative Fever
HEENT: Normocephalic and Anicteric
Respiratory: Clear and Non Labored Respirations
Cardiac: S1/S2, Regular Rhythm and Murmur; Negative Peripheral Edema
GI: Non Tender and Distended
Musculoskeletal: No Clubbing and No Cyanosis
Skin: Warm and Dry
Neuro: Awake and Alert
Assessment / Plan
-
Mr. Hernandez is a 80-year-old man with past medical history of asthma, psoriasis, hyperlipidemia, prostate cancer, robotic prostatectomy presenting with abdominal pain and vomiting started yesterday, CT notable for SBO and fat attenuation proximal to
transition point.
#Small bowel obstruction
CT abdomen pelvis notable for SBO
At discharge outpatient follow-up with surgery
-NG tube placed
-N.p.o.
-IV fluids
-Antiemetics as needed
-Non opioid analgesia as needed
-Abdominal x-ray in the a.m.
-Consider TSH
--- NOTE | 2025-10-11 15:26 | EDCM ---
Reviewed chart and met with pt bedside in ED. Lives with his Mae in 2 SH, 1 MIMI from back door. Has first floor half bath, full flight to second floor bedroom and full bath.
Independent in ADLs, personal care and ambulation at baseline. No assistive devices, no DME.
Confirms prescription coverage.
No hx VN or SNF.
PCP: Ad Dorman
Pharmacy: [facility]
Anticipate discharge home, CM will continue to follow for all discharge planning needs.
--- NOTE | 2025-10-11 17:11 | PTCARENOTE ---
patient arrived from ER via stretcher to room. reports nausea almost gone. denies pain, Chuyita Davis NG tube draining brown fluid, verified placement. oriented to room and use of call, please see full shift nursing shift assessment, will continue to
monitor.
--- NOTE | 2025-10-11 17:39 | PTCARENOTE ---
rn assisted living coordinator- Patient's admission interview completed remotely on the phone.
[2025-10-11] MEDS: LOVENOX 40 MG SC (18:24)
[2025-10-11] MEDS: CHLORASEPTIC/SORE THROAT SPRAY 1 SPRAY PO (21:21)
[2025-10-12 06:06] LABS: Hematocrit 40.3 % (39.0-52.0); Hemoglobin 13.6 g/dL (13.0-18.0); Mean Corp Hgb Conc. 33.7 g/dL (33.0-37.0); Mean Corpuscular Volume 87.8 fL (80.0-94.0); Platelet Count 202 10^3/uL (130-400); Red Cell Dist. Width 13.3 % (11.5-14.5)
[2025-10-12 06:34] LABS: Blood Urea Nitrogen 18 mg/dl (9-20); Calcium 8.7 mg/dl (8.4-10.2); Carbon Dioxide 27 mmol/L (22-30); Chloride 105 mmol/L (98-107); Estimated Creatinine Clearance 58 ml/min; Glucose 96 mg/dl (70-99); Potassium 4.2 mmol/L (3.5-5.1); Sodium 138 mmol/L (135-145); eGFR > 60.00
[2025-10-12 08:01] VITALS: BP 137/59
--- NOTE | 2025-10-12 11:14 | W.PN.GS2 ---
Addendum entered and electronically signed by Salvatore Knapp MD 10/12/25 12:17:
I was physically present and personally performed the burciaga portions of the surgical evaluation and/or procedure with the resident. I discussed the findings, reviewed the resident�s note, and confirmed the medical decision-making. I provided direct
supervision as required and agree with the assessment and plan as documented with the following additions/corrections:
Passing flatus, pain resolved, denies nausea, ambulating, feels generally improved, soft, mild-mod distension, nt on exam, XR with contrast in colon, minimal NGT output overnight. Plan for clamp trial today.
Original Note:
Today's Communication / Plan
-
Repeat abdominal x-ray shows resolving SBO
Clamp trial, if successful advance diet to CLD
Assessment / Plan
-
Mr. Hernandez is a 80-year-old man with past medical history of asthma, psoriasis, hyperlipidemia, prostate cancer, robotic prostatectomy presenting with abdominal pain and vomiting started yesterday, CT notable for SBO and fat attenuation proximal to
transition point.
#Small bowel obstruction
CT abdomen pelvis notable for SBO
At discharge outpatient follow-up with surgery
Abdominal x-ray this a.m. showed contrast in colon and rectum, indicative of resolving SBO
-NG tube clamp trial, at 3 PM reassess for residual, if less then 100 cc remove NG tube, advance diet
-IV fluids
-Antiemetics as needed
-Non opioid analgesia as needed
-No plans for surgery at this time
-ambulate as able
Subjective Data
-
Patient reported doing well overnight with no complaints. He reports that abdominal distention has improved and he has been able to pass gas but not bowel. He reported no fevers chills no nausea no vomiting no shortness of breath no chest pain.
Date of Service: October 12, 2025
Objective Data
-
Intake and Output
10/11/25 10/12/25 10/13/25
06:59 06:59 06:59
Intake Total 130 / 130
Output Total 1200 / 1200
Balance -1070 / -1070
Intake:
Amount instilled into GI Tube ( 130 / 130
Total)
[place] Sump 90 / 90
Output:
Gastrointestinal tube output ( 800 / 800
Total)
[place] Sump 250 / 250
Urine, Voided 400 / 400
Vital Signs
Temp Pulse Resp BP Pulse Ox
97.9 F 67 16 137/59 96
10/12/25 08:01 10/12/25 08:01 10/12/25 08:01 10/12/25 08:01 10/12/25 08:01
Lab Results
10/12/25 05:36
10/12/25 05:36
Calcium 8.7 mg/dl (8.4-10.2) 10/12/25 05:36
Total Bilirubin 0.6 mg/dl (0.2-1.3) 10/11/25 10:03
AST 27 U/L (17-59) 10/11/25 10:03
ALT 25 U/L (0-50) 10/11/25 10:03
Alkaline Phosphatase 107 U/L (38-126) 10/11/25 10:03
Total Protein 8.0 g/dl (6.3-8.2) 10/11/25 10:03
Albumin 4.7 g/dl (3.5-5.0) 10/11/25 10:03
Physical Exam
-
Gen: comfortable, NAD
HEENT: brown output
Abd: soft, non tender, distended, tympanitic, no rebound, no guarding, prior incisions well healed
Patient has a mccloud catheter: No
Patient has a central line: No
--- NOTE | 2025-10-12 12:19 | CM ---
Addendum entered by Crystal Prajapati 10/12/25 14:34:
CM met with Marc this afternoon to complete IA. Marc lives with his in a 2 story home with 3 entry steps. Bed and bath on the upper level. Bathrooms on both levels. Marc confirmed that he is (I) amb and adls. No DME, VN or SNF hx.
IMM provided, signed copy in the chart.
Plan: Discharge to home with no identified needs.
Original Note:
CM attempted to visit Marc who was sleeping with NG tube to suction. was not at bedside when I attempted visit.
Per ED CM, pt is (I) amb and adls at baseline.
Anticipate discharge to home with no needs; CM to follow to coordinate all discharge planning needs as identified.
--- NOTE | 2025-10-12 12:24 | W.PN.HOSP.TC ---
Today's Communication/Plan
-
Monitor vitals
See plan
NG tube clamp trial per surgery
Continue with n.p.o. for now
Bowel rest
Gentle hydration
Assessment / Plan
Assessment / Plan
General: Well Developed, Well Nourished and No Apparent Distress
HEENT: NormoCephalic, +NGT
Respiratory: Clear
Cardiac: S1/S2 and Regular Rhythm
GI: Soft, Non Tender, Non Distended, Normal Bowel Sounds and Distended
Musculoskeletal: No Edema
Neuro: AO x 3 and Nonfocal/grossly intact
Psych: Calm
Small bowel obstruction
- NG tube for decompression, clamp trial per surgery
N.p.o.
Passing flatus however still no bowel movement
-Zofran prn for n/v
- Surgery following, abdomen x-ray shows improvement in bowel gas pattern
- CT abdomen pelvis with impression Small bowel obstruction with transition point in the right lower quadrant as above. Just proximal to the transition, there is fat attenuation within the small bowel lumen which is probably related to ingested
material rather than mass as above. Associated small volume of free fluid within the pelvis, no abscess formation or pneumoperitoneum.
Hepatomegaly and hepatic fatty infiltration.
#hxt of asthma
-not in acute exacerbation
-hold med
#HLD
-hold statin
History of prostate cancer status post prostatectomy
#DVT prophylaxis
-Lovenox
#CODE status
-full code
Anticipated Discharge: 24 - 48 hours
Subjective/Interval History
-
Date of Service: October 12, 2025
Still has some distention
Objective Data
-
Labs:
Laboratory Results
10/12/25
05:36
WBC 6.1
Hgb 13.6
Hct 40.3
Plt Count 202
Sodium 138
Potassium 4.2
Chloride 105
Carbon Dioxide 27
BUN 18
Creatinine 1.0
Glucose 96
Calcium 8.7
Vital Signs:
Vital Signs
Temp Pulse Resp BP Pulse Ox
97.9 F 67 16 137/59 96
10/12/25 08:01 10/12/25 08:01 10/12/25 08:01 10/12/25 08:01 10/12/25 08:01
I&O
10/11/25 10/12/25 10/13/25
06:59 06:59 06:59
Intake Total 130 / 130
Output Total 1200 / 1200
Balance -1070 / -1070
[2025-10-12] MEDS: NSS 1000 IV (13:23)
[2025-10-12 15:18] VITALS: BP 124/63
[2025-10-12] MEDS: LOVENOX 40 MG SC (17:16)
[2025-10-12 23:00] VITALS: BP 136/61
[2025-10-13] MEDS: NSS 1000 IV (06:31)
[2025-10-13 07:00] LABS: Blood Urea Nitrogen 19 mg/dl (9-20); Calcium 8.4 mg/dl (8.4-10.2); Carbon Dioxide 30 mmol/L (22-30); Chloride 104 mmol/L (98-107); Estimated Creatinine Clearance 58 ml/min; Glucose 92 mg/dl (70-99); Potassium 4.3 mmol/L (3.5-5.1); Sodium 137 mmol/L (135-145); eGFR > 60.00
[2025-10-13 07:34] VITALS: BP 134/67
--- NOTE | 2025-10-13 11:28 | W.PN.GS2 ---
Today's Communication / Plan
-
-- Fulls, ADAT to LRD
-- HLIV
Assessment / Plan
-
Mr. Hernandez is a 80-year-old man with past medical history of asthma, psoriasis, hyperlipidemia, prostate cancer, robotic prostatectomy presenting with abdominal pain and vomiting
CT notable for SBO and fat attenuation proximal to transition point.
AVSS
No repeat labs
Clinical and radiographic improvement. Plan for dietary advancement to fulls with potential LRD this afternoon/evening. Would monitor in the hospital setting for today to be sure about dietary tolerance with tentative plan for DC if tolerating a
diet tomorrow. We discussed outpatient follow-up with potential MRE. Dietary education provided. All questions answered.
-- Fulls, ADAT to LRD
-- HLIV
-- Pain control: Tylenol, Toradol
-- OOB with/ambulate
Subjective Data
-
Date of Service: October 13, 2025
Feels improved. Reports some mild crampy pain and gurgling overnight, which has resolved today. No nausea or vomiting. Passing multiple loose stools.
Objective Data
-
Intake and Output
10/12/25 10/13/25 10/14/25
06:59 06:59 06:59
Intake Total 130 / 130 720 / 720
Output Total 1200 / 1200
Balance -1070 / -1070 720 / 720
Intake:
Oral fluids 0 / 0
IV fluids (Total) 720 / 720
Amount instilled into GI Tube ( 130 / 130
Total)
[place] Sump 90 / 90
Output:
Gastrointestinal tube output ( 800 / 800
Total)
[place] Sump 250 / 250
Urine, Voided 400 / 400
Other:
Number of approximated MODERATE 3
amounts of urine
Vital Signs
Temp Pulse Resp BP Pulse Ox
97.5 F 64 17 134/67 97
10/13/25 07:34 10/13/25 07:34 10/13/25 07:34 10/13/25 07:34 10/13/25 07:34
Lab Results
10/12/25 05:36
10/13/25 05:56
Calcium 8.4 mg/dl (8.4-10.2) 10/13/25 05:56
Total Bilirubin 0.6 mg/dl (0.2-1.3) 10/11/25 10:03
AST 27 U/L (17-59) 10/11/25 10:03
ALT 25 U/L (0-50) 10/11/25 10:03
Alkaline Phosphatase 107 U/L (38-126) 10/11/25 10:03
Total Protein 8.0 g/dl (6.3-8.2) 10/11/25 10:03
Albumin 4.7 g/dl (3.5-5.0) 10/11/25 10:03
Physical Exam
-
Gen: NAD
Abd: soft, NT, mild distension, non-peritoneal
Patient has a mccloud catheter: No
Patient has a central line: No
--- NOTE | 2025-10-13 12:06 | W.PN.HOSP.TC ---
Today's Communication/Plan
-
Monitor vital signs
see plan
Surgery following, advance diet to fulls
Monitor
Assessment / Plan
Assessment / Plan
General: Well Developed, Well Nourished and No Apparent Distress
HEENT: NormoCephalic, +NGT
Respiratory: Clear
Cardiac: S1/S2 and Regular Rhythm
GI: Soft, Non Tender, Non Distended, Normal Bowel Sounds and Distended
Musculoskeletal: No Edema
Neuro: AO x 3 and Nonfocal/grossly intact
Psych: Calm
Small bowel obstruction
Now off NG tube, diet upgraded to fulls.
Had a small bowel movement earlier
-Zofran prn for n/v
- Surgery following, abdomen x-ray shows improvement in bowel gas pattern
- CT abdomen pelvis with impression Small bowel obstruction with transition point in the right lower quadrant as above. Just proximal to the transition, there is fat attenuation within the small bowel lumen which is probably related to ingested
material rather than mass as above. Associated small volume of free fluid within the pelvis, no abscess formation or pneumoperitoneum.
Hepatomegaly and hepatic fatty infiltration.
#hx of asthma
-not in acute exacerbation
-hold med
#HLD
-hold statin
History of prostate cancer status post prostatectomy
#DVT prophylaxis
-Lovenox
#CODE status
-full code
Anticipated Discharge: Within 24 hours
Subjective/Interval History
-
Date of Service: October 13, 2025
denies nausea
Objective Data
-
Labs:
Laboratory Results
10/13/25
05:56
Sodium 137
Potassium 4.3
Chloride 104
Carbon Dioxide 30
BUN 19
Creatinine 1.0
Glucose 92
Calcium 8.4
Vital Signs:
Vital Signs
Temp Pulse Resp BP Pulse Ox
97.5 F 64 17 134/67 97
10/13/25 07:34 10/13/25 07:34 10/13/25 07:34 10/13/25 07:34 10/13/25 07:34
I&O
10/12/25 10/13/25 10/14/25
06:59 06:59 06:59
Intake Total 130 / 130 720 / 720
Output Total 1200 / 1200
Balance -1070 / -1070 720 / 720
--- NOTE | 2025-10-13 13:18 | CM ---
CM continues to follow for discharge planning. Diet is being switched to fulls.
Plan: Discharge to home with no needs.
[2025-10-13 15:14] VITALS: BP 150/64
--- NOTE | 2025-10-13 17:34 | PTCARENOTE ---
patient abd with mild distention, continent of small brown formed BM in toilet, tolerating low residue diet, independent, vss, will continue to monitor.
[2025-10-13] MEDS: LOVENOX 40 MG SC (17:35)
[2025-10-13] MEDS: SINGULAIR 10 MG PO (17:35)
[2025-10-13 22:51] VITALS: BP 153/79
[2025-10-14 06:45] LABS: Blood Urea Nitrogen 13 mg/dl (9-20); Calcium 8.6 mg/dl (8.4-10.2); Carbon Dioxide 31 mmol/L (22-30); Chloride 103 mmol/L (98-107); Estimated Creatinine Clearance 58 ml/min; Glucose 94 mg/dl (70-99); Potassium 4.0 mmol/L (3.5-5.1); Sodium 137 mmol/L (135-145); eGFR > 60.00
[2025-10-14 07:25] VITALS: BP 126/64
--- NOTE | 2025-10-14 07:39 | W.PN.GS2 ---
Today's Communication / Plan
-
ok for DC
Assessment / Plan
-
Mr. Hernandez is a 80-year-old man with past medical history of asthma, psoriasis, hyperlipidemia, prostate cancer, robotic prostatectomy presenting with abdominal pain and vomiting
CT notable for SBO and fat attenuation proximal to transition point.
AVSS
plan for DC. We discussed outpatient follow-up with potential MRE. Dietary education provided. All questions answered.
-- LRD
-- Pain control: Tylenol, Toradol
-- OOB with/ambulate
Subjective Data
-
Patient is tolerating LRD well with no issues. He had a BM yesterday with no issues. Had some mild abdominal cramping overnight that alleviated with passing gas. Otherwise no other complaints.
Date of Service: October 14, 2025
Objective Data
-
Intake and Output
10/13/25 10/14/25 10/15/25
06:59 06:59 06:59
Intake Total 720 / 720 1440 / 1440
Balance 720 / 720 1440 / 1440
Intake:
Oral fluids 0 / 0 1140 / 1140
IV fluids (Total) 720 / 720 300 / 300
Other:
Number of approximated MODERATE 3 3
amounts of urine
Vital Signs
Temp Pulse Resp BP Pulse Ox
98.0 F 64 17 126/64 97
10/14/25 07:25 10/14/25 07:25 10/14/25 07:25 10/14/25 07:25 10/14/25 07:25
Lab Results
10/12/25 05:36
10/14/25 05:56
Calcium 8.6 mg/dl (8.4-10.2) 10/14/25 05:56
Total Bilirubin 0.6 mg/dl (0.2-1.3) 10/11/25 10:03
AST 27 U/L (17-59) 10/11/25 10:03
ALT 25 U/L (0-50) 10/11/25 10:03
Alkaline Phosphatase 107 U/L (38-126) 10/11/25 10:03
Total Protein 8.0 g/dl (6.3-8.2) 10/11/25 10:03
Albumin 4.7 g/dl (3.5-5.0) 10/11/25 10:03
Physical Exam
-
Gen: NAD
Abd: soft, Non tender, mild distension, no rebound, no guarding
Patient has a mccloud catheter: No
Patient has a central line: No
[2025-10-14] MEDS: CLARITIN 10 MG PO (09:11)
--- NOTE | 2025-10-14 11:30 | W.PN.HOSP.TC ---
Today's Communication/Plan
-
Monitor vital signs see plan
Tolerating low residue diet
Seen by surgery, okay to discharge home
Time of discharge 37 minutes
Assessment / Plan
Assessment / Plan
General: Well Developed, Well Nourished and No Apparent Distress
HEENT: NormoCephalic, +NGT
Respiratory: Clear
Cardiac: S1/S2 and Regular Rhythm
GI: Soft, Non Tender, Non Distended, Normal Bowel Sounds and Distended
Musculoskeletal: No Edema
Neuro: AO x 3 and Nonfocal/grossly intact
Psych: Calm
Small bowel obstruction
Now off NG tube, diet upgraded to LRD;tolerated well. Seen by surgery. okay to discharge
Had a small bowel movement earlier
-Zofran prn for n/v
- Surgery following, abdomen x-ray shows improvement in bowel gas pattern
- CT abdomen pelvis with impression Small bowel obstruction with transition point in the right lower quadrant as above. Just proximal to the transition, there is fat attenuation within the small bowel lumen which is probably related to ingested
material rather than mass as above. Associated small volume of free fluid within the pelvis, no abscess formation or pneumoperitoneum.
Hepatomegaly and hepatic fatty infiltration.
#hx of asthma
-not in acute exacerbation
#HLD
History of prostate cancer status post prostatectomy
#DVT prophylaxis
-Lovenox
#CODE status
-full code
Anticipated Discharge: Today
Subjective/Interval History
-
Date of Service: October 14, 2025
denies pain
Objective Data
-
Labs:
Laboratory Results
10/14/25
05:56
Sodium 137
Potassium 4.0
Chloride 103
Carbon Dioxide 31 H
BUN 13
Creatinine 1.0
Glucose 94
Calcium 8.6
Vital Signs:
Vital Signs
Temp Pulse Resp BP Pulse Ox
98.0 F 64 17 126/64 97
10/14/25 07:25 10/14/25 07:25 10/14/25 07:25 10/14/25 07:25 10/14/25 07:25
I&O
10/13/25 10/14/25 10/15/25
06:59 06:59 06:59
Intake Total 720 / 720 1440 / 1440
Balance 720 / 720 1440 / 1440
--- NOTE | 2025-10-14 11:34 | W.DCSUMMARY ---
Discharge Summary
Discharge Data
Date of Admission: 10/11/25
Date of Discharge: 10/14/25
-
Pending Results: No
Hospital Course
80-year-old male with past medical history of hepatomegaly, hepatic fatty infiltration, asthma, hyperlipidemia, prostate cancer status post prostatectomy came to the hospital with small bowel obstruction. Initially patient had NG tube for
decompression. Patient was seen by surgery throughout hospitalization. CT scan was consistent with small bowel obstruction. Over time patient's symptoms continue to improve with conservative measures and patient was able to have bowel movement.
Patient was then started on diet and he was on low residue diet prior to discharge. Since his symptoms continue to improve and he was able to tolerate diet, he was then discharged home with instructions to follow-up with all his physicians
outpatient.
Discharge Plan
-
Patient Disposition: Home (Routine Discharge)
Discharge Diagnosis/Procedures: Small bowel obstruction
Condition: Fair
Diet: Low Fiber
Activity: As tolerated
Driving Restrictions: As prior to admission
Bathing Restrictions: None
Instructions: Low-fiber diet
Referrals:
Ad Dorman MD [Family Provider, Family Practice] - in less than 1 week
Po Stevens MD [Active, Surgical] - in two to four weeks
Prescriptions:
Continued
simvastatin 10 MG tablet
10 mg PO QPM
montelukast 10 MG tablet
10 mg PO QPM
Asmanex Twisthaler 220 MCG aerosol powdr breath activated
1 inh IH R DAILY
desloratadine 5 mg Tablet
5 mg PO DAILY
omeprazole 20 mg Capsule,Delayed Release(Dr/Ec)
20 mg PO DAILYPRN PRN (Reason: gerd)
fluticasone propionate 50 mcg/actuation [place],Suspension
1 spray INTRANASAL DAILY
pimecrolimus
topical BID
Rx Instructions:
pt reports he only uses it once a day
Discharge Orders:
Discharge Patient (As Directed); Ordered 10/14/25
Ordered By: Mook Bowers
Discharge Date and Time
Discharge Date/Time: 10/14/25 13:06
Print Language: LITHUANIAN
== END 2025-10-14 13:06 | disposition home or self-care (01) | DRG 390 ==
LOC: 3 WEST ACU 14:34
PROVIDERS: Registered Nurse; ADMITTING PHYSICIAN Hospitalist; ATTENDING PHYSICIAN Internal Medicine; CONSULT PHYSICIAN Surgery; EMERGENCY PHYSICIAN Emergency Medicine; FAMILY PHYSICIAN Family Medicine
DX: K56.50 Intestinal adhesions [bands], unspecified as to partial versus complete obstruction (principal); J44.89 Other specified chronic obstructive pulmonary disease; R16.0 Hepatomegaly, not elsewhere classified; E78.5 Hyperlipidemia, unspecified; Z79.82 Long term (current) use of aspirin; Z79.899 Other long term (current) drug therapy; Z87.891 Personal history of nicotine dependence
CPT/HCPCS: 43752; 74019; 74177; 80048; 80053; 83690; 85025; 85027; 93005; 96361; 96374; 99285; Q9967